=== PATIENT | male | born 1990 | race American Indian/Alaskan Native ===

== ENCOUNTER 2016-07-23 22:03 | Emergency (ER) | payer OTHER ==
[2016-07-24 00:40] LABS: Bilirubin,Urine NEG (Negative); Blood,Urine NEG (Negative); Ketones,Urine NEG (Negative); Leukocyte Esterase,Urine NEG (Negative); Nitrite,Urine NEG (Negative); Protein,Urine <15 mg/dL mg/dL (Negative); WBC,Urine < 1.0 /HPF (0.0-6.0)
[2016-07-24] MEDS ORDERED: ROCEPHIN IM ONE (03:18)
[2016-07-24] MEDS ORDERED: ZITHROMAX PO ONE (03:18)
[2016-07-24] MEDS ORDERED: XYLOCAINE 1% MPF 5 mL INFILTRATI ONE (03:18)
--- NOTE | 2016-07-24 03:23 | Emergency Department Report ---
ED Male HPI - General Chief complaint: Urogenital-Male Stated complaint: STD Time Seen by Provider: 07/24/16 03:17 Source: patient Mode of arrival: Ambulatory Limitations: No Limitations - History of Present Illness Initial comments: This is a pleasant 26-year-old gentleman who reports some urgency and some mild urethral discharge discomfort with urination for the past several days. He has had chlamydia in the past. He thinks he has again. He denies penile discharge. He denies testicular discomfort. He denies any abdominal pains. He denies diarrhea. He denies hematuria. Patient also complaining of some anxiety. Asking for refill of medication. He does not have any prior history of following up with psychiatry. He denies any homicidal suicidal ideations. He reports this becoming anxious due to little things in his life. He denies any significant life stressors that are new. He just feels that he is not doing well in general and dealing with stressors - Related Data Previous Rx's Medication Instructions Recorded Last Taken Type Fluticasone [Flonase] 1 spray NS DAILY #1 bottle 10/09/14 Unknown Rx Guaifenesin/Codeine Phosphate 10 ml PO BID #1 bottle 10/09/14 Unknown Rx [guaiFENesin-Codeine Syrup] Ibuprofen [Motrin 800 MG tab] 800 mg PO Q8H PRN #30 tablet 10/09/14 Unknown Rx Allergies Allergy/AdvReac Type Severity Reaction Status Date / Time No Known Allergies Allergy Verified 10/09/14 15:17 ED Review of Systems ROS: Stated complaint: STD Other details as noted in HPI Comment: All other systems reviewed and negative Constitutional: denies: chills, fever Eyes: denies: eye pain, eye discharge, vision change ENT: denies: ear pain, throat pain Respiratory: denies: cough, shortness of breath, wheezing Cardiovascular: denies: chest pain, palpitations Endocrine: no symptoms reported Gastrointestinal: denies: abdominal pain, nausea, diarrhea Genitourinary: dysuria. denies: urgency, testicular pain, testicular mass Musculoskeletal: denies: back pain, joint swelling, arthralgia Skin: denies: rash, lesions Neurological: denies: headache, weakness, paresthesias Psychiatric: anxiety. denies: depression Hematological/Lymphatic: denies: easy bleeding, easy bruising ED Past Medical Hx - Past Medical History Previous Medical History?: Yes Hx Headaches / Migraines: Yes Additional medical history: Anxiety. gastric ulcers - Surgical History Past Surgical History?: No - Social History Smoking Status: Current Every Day Smoker Substance Use Type: None - Medications Home Medications: Home Medications Medication Instructions Recorded Confirmed Last Taken Type Fluticasone [Flonase] 1 spray NS DAILY #1 bottle 10/09/14 Unknown Rx Guaifenesin/Codeine Phosphate 10 ml PO BID #1 bottle 10/09/14 Unknown Rx [guaiFENesin-Codeine Syrup] Ibuprofen [Motrin 800 MG tab] 800 mg PO Q8H PRN #30 tablet 10/09/14 Unknown Rx ED Physical Exam - General Limitations: No Limitations General appearance: alert, in no apparent distress - Head Head exam: Present: atraumatic, normocephalic - Eye Eye exam: Present: normal appearance - ENT ENT exam: Present: normal orophraynx, mucous membranes moist - Neck Neck exam: Present: normal inspection. Absent: tenderness - Respiratory Respiratory exam: Present: normal lung sounds bilaterally. Absent: respiratory distress - Cardiovascular Cardiovascular Exam: Present: regular rate, normal rhythm. Absent: systolic murmur, diastolic murmur, rubs, gallop - GI/Abdominal GI/Abdominal exam: Present: soft, normal bowel sounds. Absent: distended, tenderness - Rectal Rectal exam: Present: deferred - exam: Present: other (deferred per pt request) - Extremities Exam Extremities exam: Present: normal inspection - Back Exam Back exam: Present: normal inspection. Absent: CVA tenderness (R), CVA tenderness (L) - Neurological Exam Neurological exam: Present: alert, oriented X3 - Psychiatric Psychiatric exam: Present: normal affect, normal mood - Skin Skin exam: Present: warm, dry, intact, normal color. Absent: rash ED Course Vital Signs 07/23/16 23:24 Temperature 98.4 F Pulse Rate 51 L Respiratory 18 Rate Blood Pressure 124/75 O2 Sat by Pulse 99 Oximetry - Reevaluation(s) Reevaluation #1: 07/24/16 03:38 Patient is calm and comfortable for me here. I do not feel there is an acute issue in regards to needing to place him on any anxiolytics at this time. I did strongly encourage him to follow up with psychiatrist for numerous reasons. We did discuss a brief as well as some relaxation techniques. In regards to the urethritis., I suspect Chlamydia. We'll treat empirically for this. Given a azithromycin. I did write a prescription for his as well. He is otherwise stable here urine has been sent for analysis. Critical care attestation.: If time is entered above; I have spent that time in minutes in the direct care of this critically ill patient, excluding procedure time. ED Disposition Clinical Impression: Urethritis, Anxiety Disposition: DISCHARGED TO HOME OR SELFCARE Is pt being admited?: No Does the pt Need Aspirin: No Condition: Stable Instructions: Nonspecific Urethritis in Men (ED) Additional Instructions: You have been treated today for chlamydia and gonorrhea. You will get a call from us if your test turns up positive. It is important that your sexual partner is treated as well. Consider f/u with a psychiatrist for terminal clerk management of your anxiety. Referrals: PRIMARY CARE, [Primary Care Provider] - 3-5 Days TYRON HEALY ATTENDING ANESTHESIOLOGIST [Advanced Practice Nurse] - 3-5 Days SANDRA ZAMAN NP-C [Advanced Practice Nurse] - 3-5 Days Forms: STI Treatment and Prevention Time of Disposition: 03:21
[2016-07-24 03:40] VITALS: BP 132/86
== END 2016-07-24 04:03 | disposition home or self-care (01) ==
LOC: ED 22:03
DX: N34.2 Other urethritis (principal); F41.9 Anxiety disorder, unspecified; G43.909 Migraine, unspecified, not intractable, without status migrainosus; F17.200 Nicotine dependence, unspecified, uncomplicated
CPT/HCPCS: 81001; 96372; 99282; J0696

== ENCOUNTER 2017-02-13 15:38 | Emergency (ER) | payer OTHER ==
[2017-02-13] MEDS ORDERED: TORADOL IM ONE (20:11)
--- NOTE | 2017-02-13 20:55 | Cat Scan Report ---
FINAL REPORT EXAM: CT CERVICAL SPINE WO CON HISTORY: cervical spinal tenderness TECHNIQUE: Standard CT cervical spine obtained at 2.5 millimeter axial increments. Coronal and sagittal reconstruction was also performed. PRIORS: None. FINDINGS: The vertebral bodies are intact. There is no evidence for acute fracture. There is no evidence for paravertebral soft tissue swelling. Alignment is maintained. IMPRESSION: Negative CT of the cervical spine.
--- NOTE | 2017-02-13 21:37 | Emergency Department Report ---
ED Neck Pain/Injury HPI - General Chief Complaint: Neck Pain/Injury Stated Complaint: NECK INJURY Time Seen by Provider: 02/13/17 19:54 Mode of arrival: Ambulatory Limitations: No Limitations - History of Present Illness Initial Comments: This is 26-year-old male nontoxic, well nourished in appearance, no acute signs of distress presents to the ED complaining of neck pain x1 day. Patient stated the past 3 weeks he had been having neck stiffness and this morning he was stretching and developed severe sharp pain to the left neck region. Patient denies any trauma to the region. Denies any decreased range of motion, blurry vision, headache, chest pain, shortness of breath, numbness, tingling, fever or chills. Patient distress. Aching with level of 8 out of 10. Denies any allergies with past medical history of anxiety. MD Complaint: neck pain -: Gradual, days(s) (1) Place: home Severity: mild Severity scale (0 -10): 8 Quality: aching Consistency: constant Improves With: immobilization Worsens With: movement of neck Associated Symptoms: none. denies: headache, fever, numbness, tingling, weakness, vertigo, difficulty walking, swollen glands, difficulty swallowing, nausea, vomiting Treatments Prior to Arrival: none - Related Data Previous Rx's Medication Instructions Recorded Last Taken Type Codeine Phosphate/Guaifenesin 10 ml PO BID #1 bottle 10/09/14 Unknown Rx [guaiFENesin-Codeine Syrup] Fluticasone [Flonase] 1 spray NS DAILY #1 bottle 10/09/14 Unknown Rx Ibuprofen [Motrin 800 MG tab] 800 mg PO Q8H PRN #30 tablet 10/09/14 Unknown Rx Cyclobenzaprine [Flexeril] 10 mg PO BID PRN #10 tablet 02/13/17 Unknown Rx Ibuprofen [Motrin 600 MG tab] 600 mg PO Q8H PRN #30 tablet 02/13/17 Unknown Rx Allergies Allergy/AdvReac Type Severity Reaction Status Date / Time No Known Allergies Allergy Verified 10/09/14 15:17 ED Review of Systems ROS: Stated complaint: NECK INJURY Other details as noted in HPI Constitutional: denies: chills, fever Eyes: denies: eye pain, eye discharge, vision change ENT: denies: ear pain, throat pain Respiratory: denies: cough, shortness of breath, wheezing Cardiovascular: denies: chest pain, palpitations Endocrine: no symptoms reported Gastrointestinal: denies: abdominal pain, nausea, diarrhea Genitourinary: denies: urgency, dysuria Musculoskeletal: denies: back pain, joint swelling, arthralgia Skin: denies: rash, lesions Neurological: denies: headache, weakness, paresthesias Psychiatric: denies: anxiety, depression Hematological/Lymphatic: denies: easy bleeding, easy bruising ED Past Medical Hx - Past Medical History Hx Headaches / Migraines: Yes Additional medical history: Anxiety. gastric ulcers - Surgical History Past Surgical History?: No - Social History Smoking Status: Current Every Day Smoker Substance Use Type: Alcohol - Medications Home Medications: Home Medications Medication Instructions Recorded Confirmed Last Taken Type Codeine Phosphate/Guaifenesin 10 ml PO BID #1 bottle 10/09/14 Unknown Rx [guaiFENesin-Codeine Syrup] Fluticasone [Flonase] 1 spray NS DAILY #1 bottle 10/09/14 Unknown Rx Ibuprofen [Motrin 800 MG tab] 800 mg PO Q8H PRN #30 tablet 10/09/14 Unknown Rx Cyclobenzaprine [Flexeril] 10 mg PO BID PRN #10 tablet 02/13/17 Unknown Rx Ibuprofen [Motrin 600 MG tab] 600 mg PO Q8H PRN #30 tablet 02/13/17 Unknown Rx ED Physical Exam - General Limitations: No Limitations General appearance: alert, in no apparent distress - Head Head exam: Present: atraumatic, normocephalic, normal inspection - Eye Eye exam: Present: normal appearance, PERRL, EOMI. Absent: scleral icterus, conjunctival injection, nystagmus, periorbital swelling, periorbital tenderness Pupils: Present: normal accommodation - ENT ENT exam: Present: normal exam, normal orophraynx, mucous membranes moist, TM's normal bilaterally, normal external ear exam - Neck Neck exam: Present: normal inspection, full ROM. Absent: meningismus, lymphadenopathy, thyromegaly - Respiratory Respiratory exam: Present: normal lung sounds bilaterally. Absent: respiratory distress, wheezes, rales, rhonchi, stridor, chest wall tenderness, accessory muscle use, decreased breath sounds, prolonged expiratory - Cardiovascular Cardiovascular Exam: Present: regular rate, normal rhythm, normal heart sounds. Absent: bradycardia, tachycardia, irregular rhythm, systolic murmur, diastolic murmur, rubs, gallop - GI/Abdominal GI/Abdominal exam: Present: soft, normal bowel sounds. Absent: distended, tenderness, guarding, rebound, rigid, diminished bowel sounds - Rectal Rectal exam: Present: deferred - Extremities Exam Extremities exam: Present: normal inspection, full ROM, normal capillary refill. Absent: tenderness, pedal edema, joint swelling, calf tenderness - Back Exam Back exam: Present: normal inspection, full ROM, paraspinal tenderness ( cervical region). Absent: tenderness, CVA tenderness (R), CVA tenderness (L), muscle spasm, vertebral tenderness, rash noted - Neurological Exam Neurological exam: Present: alert, oriented X3, CN II-XII intact, normal gait, reflexes normal - Psychiatric Psychiatric exam: Present: normal affect, normal mood - Skin Skin exam: Present: warm, dry, intact, normal color. Absent: rash ED Course Vital Signs 02/13/17 17:41 Temperature 98.5 F Pulse Rate 72 Respiratory 16 Rate Blood Pressure 130/69 O2 Sat by Pulse 97 Oximetry - Reevaluation(s) Reevaluation #1: 02/13/17 21:43 Patient is speaking in full sentences with no signs of distress noted. ED Medical Decision Making - Medical Decision Making 26-year-old male that presents with cervical spinal strain. Patient was examined by me and patient is stable. Patient received Toradol 30 mg IM in the ED with persistent symptoms are improving and are subsided. Patient stated CT scan of cervical spine without contrast and reviewed by radiologist with negative findings of any abnormalities. Patient notified of CT findings with no questionable by the patient. Patient received Flexeril ibuprofen at discharge and was instructed to not operate any machinery while taking Flexeril due to sedation/drowsiness. Patient was instructed to follow-up with a primary care doctor in 3-5 days or if symptoms worsen and continue return to emergency room as soon as possible possible. Patient is hemodynamically stable with stable vital signs. Patient states he is feeling better. At time time of discharge, the patient does not seem toxic or ill in appearance. No acute signs of distress noted. Patient agrees to discharge treatment plan of care. No further questions noted by the patient. Critical care attestation.: If time is entered above; I have spent that time in minutes in the direct care of this critically ill patient, excluding procedure time. ED Disposition Clinical Impression: Cervical strain Qualifiers: Encounter type: initial encounter Qualified Code(s): S16.1XXA - Strain of muscle, fascia and tendon at neck level, initial encounter Disposition: TO HOME OR SELFCARE Is pt being admited?: No Does the pt Need Aspirin: No Condition: Stable Instructions: Cervical Spine Strain (ED), Cyclobenzaprine (By mouth), Ibuprofen (By mouth) Additional Instructions: Follow-up with your primary care doctor in 3-5 days or if symptoms worsen such as bladder or bowel stability, chest pain, short of breath, numbness or tingling sensation in extremities, headache, dizziness, visual changes, nausea vomiting, or abdominal pain, return back to emergency room as was possible. Take ibuprofen and Flexeril as prescribed. Do not operate heavy machinery while taking Flexeril due to sedation Prescriptions: Cyclobenzaprine [Flexeril] 10 mg PO BID PRN #10 tablet PRN Reason: Muscle Spasm Ibuprofen [Motrin 600 MG tab] 600 mg PO Q8H PRN #30 tablet PRN Reason: Pain Referrals: PRIMARY MD MARINO [Primary Care Provider] - 3-5 Days MISHA BENNETT MD [Staff Physician] - 3-5 Days [facility] [Outside] - 3-[address] [facility] [place] [Outside] - 3-5 Days Forms: Work/School Release Form(ED)
[2017-02-13 23:04] VITALS: BP 124/63
== END 2017-02-13 22:10 | disposition home or self-care (01) ==
LOC: ED 15:38
DX: S16.1XXA Strain of muscle, fascia and tendon at neck level, initial encounter (principal); G43.909 Migraine, unspecified, not intractable, without status migrainosus; F41.9 Anxiety disorder, unspecified; F17.200 Nicotine dependence, unspecified, uncomplicated; X58.XXXA Exposure to other specified factors, initial encounter; Y93.89 Activity, other specified; Y99.8 Other external cause status; Y92.098 Other place in other non-institutional residence as the place of occurrence of the external cause
CPT/HCPCS: 72125; 96372; 99283; J1885